=== PATIENT | female | born 1995 | race African-American/Black ===

== ENCOUNTER 2019-12-19 15:09 | Emergency (ER) | payer OTHER, SELFPAY ==
[2019-12-19 15:23] VITALS: BP 109/70; PULSE 88; RESP 16; TEMP 37.2; O2SAT 100
--- NOTE | 2019-12-19 16:12 | ED.GENADULT ---
HPI - General Adult General Chief complaint: Upper Respiratory Infection Stated complaint: SOB History of Present Illness HPI narrative: Patient is a 23-year-old -Citizen Of The [place] female with history significant for asthma cut that presents to urgent care via POV for evaluation of an asthma exacerbation that began approximately 2 days ago. Additionally, she reports painful breathing and intermittent shortness of breath. No relief with rescue inhaler. She reports using it more frequently. Nothing worsened symptoms. She states experiencing asthma exacerbations with seasonal changes. She states she called her PCP and was unable to schedule appointment until January 2020 prompting today's visit. Denies history of COPD, bronchitis, asthma, and pneumonia. Denies current/past tobacco use. Pertinent negatives: fever, sweats, chills, change in appetite, fatigue, skin color changes, headache, nasal congestion/discharge, dizziness, lymphadenopathy, sinus problems, ear pain/drainage, chest pain, heart murmurs, heart palpitations, wheezing, cyanosis, hemoptysis, hoarseness, orthopnea, nausea, vomiting, diarrhea, and myalgias. Related Data Home Medications Medication Instructions Recorded Confirmed Daily Inhaler, Blue 12/19/19 ProAir HFA 12/19/19 Allergies Allergy/AdvReac Type Severity Reaction Status Date / Time No Known Allergies Allergy Verified 12/19/19 15:28 Review of Systems Review of Systems: Narrative: All other systems reviewed and are negative PMFSH Comments I have reviewed and agree with the patient's past medical, surgical, social, and family hx as documented by the RN. There is no relevant family history pertinent to the presenting complaint. Exam Narrative: Exam Narrative: GENERAL: Well-appearing, well-nourished, and in no acute distress. HEAD: Normocephalic, atraumatic. No sinus tenderness or facial swelling appreciated. EYES: PERRLA and EOMI. No evidence of erythema, swelling, or drainage. ENT: Bilateral external ears and ear canals normal. Bilateral TMs are normal.No TM perforation. Nares clear, no rhinorrhea or epistaxis. Bilateral turbinates without erythema/ swelling. Mucous membranes moist and pink. Uvula is midline without erythema and swelling. No evidence of petechial rash, cobblestoning, lesions, ulcers, erythema, swelling, exudates, peritonsillar abscess, tenting, or drooling. Breath odor and voice normal. NECK: Supple. No Lymphadenopathy or nuchal rigidity appreciated. CHEST: Bilateral lung tinoco are clear to auscultation. No respiratory distress. No evidence of cough or pleuritic cp upon examination. HEART: Regular rate and rhythm. No murmur, gallop, or rub heard. EXTREMITIES: Normal range of motion. No edema. SKIN: Warm, dry, no rash. NEURO: No focal deficits. Alert and oriented x3. Course Vital Signs Vital signs: Vital Signs Temperature 98.9 F 12/19/19 15:23 Pulse Rate 88 12/19/19 15:23 Respiratory Rate 16 12/19/19 15:23 Blood Pressure 109/70 12/19/19 15:23 Pulse Oximetry 100 12/19/19 15:23 Temperature 98.9 F 12/19/19 15:23 Pulse Rate 88 12/19/19 15:23 Respiratory Rate 16 12/19/19 15:23 Blood Pressure 109/70 12/19/19 15:23 Pulse Oximetry 100 12/19/19 15:23 Medical Decision Making Differential Diagnosis Differential Diagnosis: Allergic rhinitis, ABRS, acute viral sinusitis, strep pharyngitis, nasopharyngitis, bronchitis, pneumonia, AOM, otitis externa, viral URI, influenza Medical Records Medical records reviewed: Yes I reviewed the patient's medical records. Vital Signs Vital Signs: Vital Signs Temperature 98.9 F 12/19/19 15:23 Pulse Rate 88 12/19/19 15:23 Respiratory Rate 16 12/19/19 15:23 Blood Pressure 109/70 12/19/19 15:23 Pulse Oximetry 100 12/19/19 15:23 Temperature 98.9 F 12/19/19 15:23 Pulse Rate 88 12/19/19 15:23 Respiratory Rate 16 12/19/19 15:23 Blood Pressure 109/70 12/19/19 15:23 Pulse Oxime
== END 2019-12-19 16:28 | disposition home or self-care (01) ==
PROVIDERS: Emergency Provider Nurse Practitioner Family
DX: J40 Bronchitis, not specified as acute or chronic (principal)
CPT/HCPCS: 99203; G0463